=== PATIENT | male | born 1975 | race Hispanic/Latino ===

== ENCOUNTER → 2020-02-24 | Outpatient (CLI) | payer MEDICARE ==
[~2020-02-24] MED LIST: IOHEXOL 350 MG/ML 100ML INFUS..BTL IV ONE
== END | disposition home or self-care (01) ==
LOC: RAH 09:44
PROVIDERS: ATTEND Internal Medicine Gastroenterology
DX: C18.7 Malignant neoplasm of sigmoid colon (principal); N28.1 Cyst of kidney, acquired
CPT/HCPCS: 74178; Q9967

== ENCOUNTER 2020-07-17 05:50 | Inpatient (IN) | payer MEDICARE ==
[~2020-07-17] VITALS: Ht 180.3 cm; Wt 114.8 kg
[2020-07-17] MEDS ORDERED: FUROSEMIDE 10 MG/ML 4ML VIAL ONE (05:56)
[2020-07-17] MEDS ORDERED: NITROGLYCERIN 1GM/1 INCH PACKET TD ONE (05:56)
[2020-07-17] MEDS ORDERED: ONDANSETRON HCL 4 MG/2 ML VIAL ONE (06:05)
[2020-07-17] MEDS ORDERED: PROPOFOL 1000 MG/100 ML 100 ML IV ONE ×4 (06:15→18:58)
[2020-07-17 06:25] LABS: BASOPHILS % (AUTO) 0.2 % (0.0-5.0); EOSINOPHILS % (AUTO) 0.2 % (0.0-8.0); HEMATOCRIT 30.8 % (42-54); LYMPHOCYTES % (AUTO) 11.3 % (21.0-51.0); MEAN CORPUSCULAR HEMOGLOBIN 30.7 pg (27.0-33.0); MEAN CORPUSCULAR HGB CONC 32.8 g/dL (32.0-36.0); MEAN CORPUSCULAR VOLUME 93.6 fL (79-99); MONOCYTES % (AUTO) 4.9 % (3.0-13.0); NEUTROPHILS % (AUTO) 82.9 % (40.0-77.0); PLATELET COUNT (AUTO) 115 K/uL (130-400); RED BLOOD CELL COUNT(AUTO) 3.29 MIL/uL (4.50-6.20); RED CELL DISTRIBUTION WIDTH 16.6 % (11.0-15.5); WHITE BLOOD COUNT (AUTO) 5.5 K/uL (4.8-10.8)
[2020-07-17 06:31] LABS: ABG BASE EXCESS -8.5 mmol/L (-2.0-3.0); ABG HCO3 20.2 mmol/L (21.0-28.0); ABG OXYGEN SATURATION 90.7 % (95.0-99.0); ABG PCO2 58 mmHg (35-48)
[2020-07-17 06:39] LABS: INR 0.99 (0.85-1.15); PARTIAL THROMBOPLASTIN TIME 31.7 SEC (26.3-35.5); PROTHROMBIN TIME 10.7 SEC (9.6-11.6)
[2020-07-17 06:45] LABS: ALBUMIN 3.7 g/dL (3.5-5.0); BILIRUBIN,TOTAL 0.7 mg/dL (0.2-1.0); TOTAL PROTEIN, SERUM 8.2 g/dL (6.0-8.3)
[2020-07-17] MEDS ORDERED: SODIUM BICARB 50MEQ 50ML VIAL 50 ML ONE (06:46)
[2020-07-17] MEDS ORDERED: DEXTROSE 50%-WATER 50 ML DISP.SYRIN IV ONE (06:46)
[2020-07-17] MEDS ORDERED: INSULIN HUMULIN R 100 UNIT/ML 3ML ONE (06:47)
[2020-07-17 06:58] LABS: CREATININE 15.1 mg/dL (0.5-1.5)
[2020-07-17 06:59] LABS: POTASSIUM 7.1 mmol/L (3.5-5.1)
[2020-07-17 07:41] LABS: APPEARANCE,URINE Cloudy (CLEAR); BILIRUBIN,URINE Negative (NEGATIVE); COLOR,URINE Yellow (YELLOW); GLUCOSE, URINE (UA) 250 mg/dL (NEGATIVE); KETONES,URINE Negative (NEGATIVE); LEUKOCYTE ESTERASE ,URINE Negative (NEGATIVE); NITRATE,URINE Negative (NEGATIVE); OCCULT BLOOD,URINE Moderate (NEGATIVE); PH,URINE 7.5 (5.0-8.0); PROTEIN,URINE 300 mg/dL (NEGATIVE)
[2020-07-17] MEDS ORDERED: ALBUTEROL SULFATE 0.083% 2.5 MG/3 ML INH IH ONE (07:43)
[2020-07-17 07:55] LABS: RBC,URINE 26-50 /HPF (0-1); WBC,URINE None Seen /HPF (0-1); YEAST,URINE BUDDING Few /HPF (None Seen)
[2020-07-17 07:56] LABS: BACTERIA,URINE Rare /HPF (None Seen)
[2020-07-17] MEDS: CEFEPIME HCL 1 GM VIAL IVP SCH (08:30)
[2020-07-17] MEDS: ENOXAPARIN SODIUM 30 MG/0.3 ML SQ SCH ×2 (09:00→21:00)
[2020-07-17] MEDS: DOXYCYCLINE 100MG+NS 250ML 250 ML IV SCH ×2 (09:00→21:00)
[2020-07-17] MEDS ORDERED: FENTANYL 2500MCG+NS 250ML 250 ML IV ONE (10:50)
[2020-07-17] MEDS ORDERED: NIFEDIPINE ER 30 MG TAB PO ONE (11:28)
[2020-07-17] MEDS: INSULIN R PO SS1 SQ SCH ×3 (11:30→21:00)
[2020-07-17] MEDS ORDERED: CEFEPIME HCL 1 GM VIAL ONE (12:46)
[2020-07-17] MEDS ORDERED: DOXYCYCLINE 100MG+NS 250ML 250 ML IV ONE (12:46)
[2020-07-17] MEDS ORDERED: SODIUM CHLORIDE 0.9% 100 ML IV ONE (12:47)
[2020-07-17] MEDS ORDERED: NOREPINEPHRINE 4MG/NS 250ML 250 ML IV SCH (15:15)
[2020-07-17] MEDS ORDERED: ROCURONIUM BROMIDE 10MG/1ML 5ML VL IV SCH (16:00)
[2020-07-17] MEDS: ARTIFICAL TEARS SOL 15 ML OU SCH ×2 (16:00→22:00)
[2020-07-17] MEDS ORDERED: ROCURONIUM BROMIDE 100 MG in SODIUM CHLORIDE 0.9% 100 ML IV SCH (16:03)
[2020-07-17 16:52] LABS: ABG BASE EXCESS -1.2 mmol/L (-2.0-3.0); ABG HCO3 23.7 mmol/L (21.0-28.0); ABG PCO2 40 mmHg (35-48)
[2020-07-17] MEDS: CHLORHEXIDINE GLUCONATE 473 ML MOUTHWASH MM SCH (21:00)
[2020-07-18] VITALS (18 sets, daily range): BP systolic 97–166; BP diastolic 37–70
[2020-07-18 03:51] LABS: ABG BASE EXCESS -0.5 mmol/L (-2.0-3.0); ABG HCO3 24.7 mmol/L (21.0-28.0); ABG OXYGEN SATURATION 98.3 % (95.0-99.0); ABG PCO2 43 mmHg (35-48)
[2020-07-18] MEDS: ARTIFICAL TEARS SOL 15 ML OU SCH ×3 (04:00→16:00)
[2020-07-18 04:19] LABS: ALBUMIN 2.8 g/dL (3.5-5.0); BILIRUBIN,TOTAL 0.7 mg/dL (0.2-1.0); MAGNESIUM 1.7 mg/dL (1.80-2.40); POTASSIUM 5.1 mmol/L (3.5-5.1); TOTAL PROTEIN, SERUM 6.8 g/dL (6.0-8.3)
[2020-07-18 04:22] LABS: CREATININE 12.3 mg/dL (0.5-1.5)
[2020-07-18 04:28] LABS: BASOPHILS % (AUTO) 0.2 % (0.0-5.0); EOSINOPHILS % (AUTO) 0.2 % (0.0-8.0); HEMATOCRIT 22.9 % (42-54); LYMPHOCYTES % (AUTO) 6.3 % (21.0-51.0); MEAN CORPUSCULAR HEMOGLOBIN 30.6 pg (27.0-33.0); MEAN CORPUSCULAR HGB CONC 32.8 g/dL (32.0-36.0); MEAN CORPUSCULAR VOLUME 93.5 fL (79-99); MONOCYTES % (AUTO) 2.7 % (3.0-13.0); NEUTROPHILS % (AUTO) 90.1 % (40.0-77.0); PLATELET COUNT (AUTO) 77 K/uL (130-400); RED BLOOD CELL COUNT(AUTO) 2.45 MIL/uL (4.50-6.20); RED CELL DISTRIBUTION WIDTH 16.7 % (11.0-15.5); WHITE BLOOD COUNT (AUTO) 5.6 K/uL (4.8-10.8)
[2020-07-18] MEDS: INSULIN R PO SS1 SQ SCH ×4 (07:30→21:00)
[2020-07-18] MEDS ORDERED: DOXYCYCLINE 100MG+NS 250ML 250 ML IV ONE ×2 (08:13→08:39)
[2020-07-18] MEDS ORDERED: CEFEPIME HCL 1 GM VIAL ONE (08:13)
[2020-07-18] MEDS ORDERED: DEXAMETHASONE SOD PHOSPHATE 10MG/ML 1ML VIAL ONE (08:13)
[2020-07-18] MEDS ORDERED: SODIUM CHLORIDE 0.9% 50 ML IV ONE (08:14)
[2020-07-18] MEDS ORDERED: ENOXAPARIN SODIUM 30 MG/0.3 ML SQ ONE (08:20)
[2020-07-18] MEDS: CEFEPIME HCL 1 GM VIAL IVP SCH (08:30)
[2020-07-18] MEDS: DOXYCYCLINE 100MG+NS 250ML 250 ML IV SCH ×2 (09:00→20:59)
[2020-07-18] MEDS: ENOXAPARIN SODIUM 30 MG/0.3 ML SQ SCH ×2 (09:00→20:59)
[2020-07-18] MEDS: CHLORHEXIDINE GLUCONATE 473 ML MOUTHWASH MM SCH (09:00)
[2020-07-18] MEDS: DEXAMETHASONE SOD PHOSPHATE 4 MG/ML 1ML VIAL IVP SCH (09:00)
--- NOTE | 2020-07-18 10:30 | NUR ---
Pt to ICU room 206. Received report from ICU nurse, pt to rm 206 with RN and RT. Transferred without incident.
--- NOTE | 2020-07-18 11:23 | NUR ---
PERSONAL BELONGINGS NOTIFIED BY SECURITY, LUKASZ, PT'S BELONGINGS TURNED IN TO PT'S .
--- NOTE | 2020-07-18 14:11 | NUR ---
CM NOTE pt currently intubated, call made to spouse ashlyn timmons, states pt resides at home with her, pt independent with ambulation, has provider 20hrs /week for adl assist, no dme, no HH, pt [facility] MWF schedule, transports. states dc plan is back home at dc, but open to md recommendations as needed. Addendum: 07/18/20 at 1415 by FMEI PIERCE CM Amended: Links added.
[2020-07-18] MEDS ORDERED: FENTANYL 2500MCG+NS 250ML 250 ML IV ONE (20:28)
[2020-07-19] VITALS (41 sets, daily range): BP systolic 117–196; BP diastolic 41–93
[2020-07-19 04:03] LABS: ABG BASE EXCESS -3.9 mmol/L (-2.0-3.0); ABG HCO3 21.4 mmol/L (21.0-28.0); ABG OXYGEN SATURATION 97.6 % (95.0-99.0); ABG PCO2 40 mmHg (35-48)
[2020-07-19 04:40] LABS: BASOPHILS % (AUTO) 0.3 % (0.0-5.0); LYMPHOCYTES % (AUTO) 3.9 % (21.0-51.0); MEAN CORPUSCULAR HEMOGLOBIN 30.8 pg (27.0-33.0); MEAN CORPUSCULAR HGB CONC 32.5 g/dL (32.0-36.0); MEAN CORPUSCULAR VOLUME 94.6 fL (79-99); MONOCYTES % (AUTO) 3.4 % (3.0-13.0); NEUTROPHILS % (AUTO) 91.6 % (40.0-77.0); PLATELET COUNT (AUTO) 89 K/uL (130-400); RED BLOOD CELL COUNT(AUTO) 2.21 MIL/uL (4.50-6.20); RED CELL DISTRIBUTION WIDTH 16.7 % (11.0-15.5); WHITE BLOOD COUNT (AUTO) 3.9 K/uL (4.8-10.8)
[2020-07-19 05:05] LABS: HEMATOCRIT 20.9 % (42-54)
[2020-07-19 05:23] LABS: ALBUMIN 2.2 g/dL (3.5-5.0); BILIRUBIN,TOTAL 0.6 mg/dL (0.2-1.0); MAGNESIUM 2.1 mg/dL (1.80-2.40); PHOSPHORUS 8.8 mg/dL (2.5-4.9); POTASSIUM 5.1 mmol/L (3.5-5.1); TOTAL PROTEIN, SERUM 6.4 g/dL (6.0-8.3)
[2020-07-19 05:31] LABS: CREATININE 14.5 mg/dL (0.5-1.5)
[2020-07-19] MEDS: CHLORHEXIDINE GLUCONATE 473 ML MOUTHWASH MM SCH ×3 (07:00→21:12)
[2020-07-19] MEDS: ARTIFICAL TEARS SOL 15 ML OU SCH ×4 (07:00→21:12)
--- NOTE | 2020-07-19 07:25 | NUR ---
Pt. is intubated and sedated on Fentanyl and Versed follows simple commands when aroused. Lab called with critical value hg 6.9 reported to MD for Pulmonary Benchmark orders given. Pt. will have Dialysis today with 1 unit of blood, spouse Su consented.
[2020-07-19] MEDS: INSULIN R PO SS1 SQ SCH (07:30)
[2020-07-19] MEDS: CEFEPIME HCL 1 GM VIAL IVP SCH (09:07)
[2020-07-19] MEDS: FAMOTIDINE/PF 20 MG/2 ML VIAL IV SCH (09:07)
[2020-07-19] MEDS: DOXYCYCLINE 100MG+NS 250ML 250 ML IV SCH ×2 (09:07→21:09)
[2020-07-19] MEDS: ASPIRIN 81MG TAB.CHEW PO SCH (09:08)
[2020-07-19] MEDS: DEXAMETHASONE SOD PHOSPHATE 4 MG/ML 1ML VIAL IVP SCH (09:08)
[2020-07-19] MEDS: POLYETHYLENE GLYCOL 3350 17 GM POWD.PACK PO SCH (09:08)
[2020-07-19] MEDS: ENOXAPARIN SODIUM 30 MG/0.3 ML SQ SCH ×2 (09:10→21:09)
--- NOTE | 2020-07-19 11:18 | NUR ---
RD NOTIFICATION - TUBE FEEDING Pt admitted positive for COVID-19, Respiratory failure, Fluid overload. Pt intubated and sedated, OGT in place. Tube feedings of Nepro @30mls/hr initiated. Recommend advance as tolerated to goal rate of 45mls/hr. Rec flushes at 160mls Q4hrs. Recommendations faxed to Conrad, RN notified. RD NOTE: Pt tolerating current tube feeding rate with no report of GI distress. Pt with altered renal labs, hemodialysis initiated 07/18. Pt with Left foot ulcer; Recommend Will BID, 1000mg vitamin C QD, 220mg Zinc QD for wound healing support. Tube feeding initiated 07/18. Hypoactive bowel sounds per EMR; recommend consider GI stimulant as medically feasible. RD to continue to monitor. Please notify RD as additional nutrition concerns arise. Thank you. Addendum: 07/19/20 at [address] Amended: Links added.
[2020-07-19] MEDS: INSULIN HUMULIN R 100 UNIT/ML 3ML SQ SCH ×3 (11:39→23:54)
[2020-07-19 12:43] LABS: HEMATOCRIT 24.9 % (42-54)
[2020-07-19] MEDS ORDERED: FENTANYL 2500MCG+NS 250ML 250 ML IV ONE (22:06)
--- NOTE | 2020-07-19 23:45 | NUR ---
SPOKE WITH [employer] REGARDING PT BEING TACHYCARDIC AND HYPERTENSIVE ORDERS [facility]
[2020-07-19] MEDS ORDERED: METOPROLOL TARTRATE 25 MG TAB ONE (23:58)
[2020-07-20] VITALS (47 sets, daily range): BP systolic 114–225; BP diastolic 37–185
[2020-07-20] MEDS: ARTIFICAL TEARS SOL 15 ML OU SCH ×4 (04:00→20:24)
[2020-07-20 04:25] LABS: ABG BASE EXCESS -1.8 mmol/L (-2.0-3.0); ABG HCO3 22.8 mmol/L (21.0-28.0); ABG OXYGEN SATURATION 93.9 % (95.0-99.0); ABG PCO2 39 mmHg (35-48)
[2020-07-20 04:29] LABS: BASOPHILS % (AUTO) 0.2 % (0.0-5.0); HEMATOCRIT 24.8 % (42-54); LYMPHOCYTES % (AUTO) 5.4 % (21.0-51.0); MEAN CORPUSCULAR HEMOGLOBIN 30.7 pg (27.0-33.0); MEAN CORPUSCULAR HGB CONC 32.7 g/dL (32.0-36.0); MEAN CORPUSCULAR VOLUME 93.9 fL (79-99); MONOCYTES % (AUTO) 4.8 % (3.0-13.0); NEUTROPHILS % (AUTO) 88.6 % (40.0-77.0); PLATELET COUNT (AUTO) 111 K/uL (130-400); RED BLOOD CELL COUNT(AUTO) 2.64 MIL/uL (4.50-6.20); RED CELL DISTRIBUTION WIDTH 16.8 % (11.0-15.5); WHITE BLOOD COUNT (AUTO) 4.8 K/uL (4.8-10.8)
[2020-07-20 04:40] LABS: ALBUMIN 2.4 g/dL (3.5-5.0); BILIRUBIN,TOTAL 0.6 mg/dL (0.2-1.0); PHOSPHORUS 5.8 mg/dL (2.5-4.9); POTASSIUM 4.5 mmol/L (3.5-5.1); TOTAL PROTEIN, SERUM 7.6 g/dL (6.0-8.3)
[2020-07-20] MEDS: METOPROLOL TARTRATE 1 MG/ML 5ML VIAL IV PRN (05:25)
[2020-07-20] MEDS: INSULIN HUMULIN R 100 UNIT/ML 3ML SQ SCH ×3 (05:51→18:05)
[2020-07-20] MEDS: ENOXAPARIN SODIUM 30 MG/0.3 ML SQ SCH ×2 (09:03→20:22)
[2020-07-20] MEDS: POLYETHYLENE GLYCOL 3350 17 GM POWD.PACK PO SCH (09:04)
[2020-07-20] MEDS: DOXYCYCLINE 100MG+NS 250ML 250 ML IV SCH ×2 (09:04→20:22)
[2020-07-20] MEDS: CEFEPIME HCL 1 GM VIAL IVP SCH (09:04)
[2020-07-20] MEDS: ASPIRIN 81MG TAB.CHEW PO SCH (09:04)
[2020-07-20] MEDS: FAMOTIDINE/PF 20 MG/2 ML VIAL IV SCH (09:06)
[2020-07-20] MEDS: DEXAMETHASONE SOD PHOSPHATE 4 MG/ML 1ML VIAL IVP SCH (09:06)
[2020-07-20] MEDS: CHLORHEXIDINE GLUCONATE 473 ML MOUTHWASH MM SCH ×2 (09:06→20:24)
[2020-07-20] MEDS: METOPROLOL TARTRATE 25 MG TAB NG SCH ×2 (09:06→20:22)
[2020-07-20] MEDS ORDERED: COMPOUND IV REFRIGERATED 1 EACH IVSOLN MISC PRN (11:00)
[2020-07-20] MEDS ORDERED: VANCOMYCIN PROTOCOL PER PHARMACY IV SCH (11:00)
[2020-07-20] MEDS ORDERED: FENTANYL CITRATE PF 0.05 MG/ML 1,000 MCG in SODIUM CHLORIDE 0.9% 100 ML IVPB SCH (11:15)
[2020-07-20] MEDS: MIDAZOLAM 100MG-0.9% NS 100ML 100ML BAG IV SCH (11:49)
--- NOTE | 2020-07-20 15:00 | NUR ---
[facility] CONSULT Patient assessed by Wound HEALING Center team. callus to right foot; no open wound present. Addendum: 07/22/20 at 1654 by LUIS A VILLAREAL LVN Amended: Links added.
--- NOTE | 2020-07-20 17:04 | NUR ---
RD UPDATE Pt continues with Nepro at rate of 30mls/hr. Tube feeding recommendations for advancement faxed 07/19/20 however possibly not received as per RN. Tube feeding recommendations re-faxed 07/20/20 17:05. Recommend advance tube feeding rate as tolerated, as medically feasible. RD to continue to monitor.
[2020-07-20] MEDS ORDERED: FENTANYL 2500MCG+NS 250ML 250 ML IV ONE (19:40)
[2020-07-20 23:03] LABS: ABG BASE EXCESS -1.4 mmol/L (-2.0-3.0); ABG OXYGEN SATURATION 94.3 % (95.0-99.0); ABG PCO2 38 mmHg (35-48)
[2020-07-21] VITALS (58 sets, daily range): BP systolic 73–182; BP diastolic 18–113
[2020-07-21] MEDS: INSULIN HUMULIN R 100 UNIT/ML 3ML SQ SCH ×4 (00:05→17:00)
[2020-07-21 04:15] LABS: HEMATOCRIT 21.6 % (42-54); MEAN CORPUSCULAR HGB CONC 32.9 g/dL (32.0-36.0); MEAN CORPUSCULAR VOLUME 94.3 fL (79-99); RED BLOOD CELL COUNT(AUTO) 2.29 MIL/uL (4.50-6.20); RED CELL DISTRIBUTION WIDTH 16.5 % (11.0-15.5); WHITE BLOOD COUNT (AUTO) 3.2 K/uL (4.8-10.8)
[2020-07-21 04:30] LABS: POTASSIUM 5.3 mmol/L (3.5-5.1)
[2020-07-21 04:32] LABS: CREATININE 13.5 mg/dL (0.5-1.5)
[2020-07-21] MEDS: ARTIFICAL TEARS SOL 15 ML OU SCH ×4 (06:19→22:37)
[2020-07-21] MEDS: MIDAZOLAM 100MG-0.9% NS 100ML 100ML BAG IV SCH ×2 (06:24→20:03)
[2020-07-21] MEDS: POLYETHYLENE GLYCOL 3350 17 GM POWD.PACK PO SCH (10:34)
[2020-07-21] MEDS: ENOXAPARIN SODIUM 30 MG/0.3 ML SQ SCH ×2 (10:36→20:04)
[2020-07-21] MEDS: METOPROLOL TARTRATE 25 MG TAB NG SCH ×2 (10:36→20:04)
[2020-07-21] MEDS: ASPIRIN 81MG TAB.CHEW PO SCH (10:37)
[2020-07-21] MEDS: DEXAMETHASONE SOD PHOSPHATE 4 MG/ML 1ML VIAL IVP SCH (10:37)
[2020-07-21] MEDS: FAMOTIDINE/PF 20 MG/2 ML VIAL IV SCH (10:37)
[2020-07-21] MEDS: CHLORHEXIDINE GLUCONATE 473 ML MOUTHWASH MM SCH ×2 (10:38→22:38)
[2020-07-21] MEDS: DOXYCYCLINE 100MG+NS 250ML 250 ML IV SCH ×2 (10:42→22:36)
[2020-07-21] MEDS: CEFEPIME HCL 1 GM VIAL IVP SCH (10:42)
--- NOTE | 2020-07-21 16:05 | NUR ---
RD UPDATE Tube Feeding advanced to goal rate (Nepro 45mls/hr). Pt continues to be hemodynamically stable, per MD note. S/p hemodialysis this AM. Monitored labs: K 5.3, BUN 101, Cr 13.5, GFR 4, BG 223. Doxy, Miralax, Lopressor in place medications in place. Dialysis schedule continues . RD to continue to monitor. Please notify as additional nutrition concerns arise. Thank you.
[2020-07-21] MEDS ORDERED: FENTANYL 2500MCG+NS 250ML 250 ML IV ONE (16:58)
[2020-07-21] MEDS: EPOETIN ALFA 10,000 UNIT/ML VIAL SQ SCH (21:00)
[2020-07-22] VITALS (25 sets, daily range): BP systolic 150–212; BP diastolic 54–98
[2020-07-22] MEDS: ARTIFICAL TEARS SOL 15 ML OU SCH ×4 (04:00→21:23)
[2020-07-22] MEDS: INSULIN HUMULIN R 100 UNIT/ML 3ML SQ SCH ×4 (06:00→18:08)
[2020-07-22 06:10] LABS: HEMATOCRIT 23.3 % (42-54); LYMPHOCYTES % (AUTO) 4.9 % (21.0-51.0); MEAN CORPUSCULAR HEMOGLOBIN 30.4 pg (27.0-33.0); MEAN CORPUSCULAR HGB CONC 32.6 g/dL (32.0-36.0); MEAN CORPUSCULAR VOLUME 93.2 fL (79-99); MONOCYTES % (AUTO) 4.9 % (3.0-13.0); NEUTROPHILS % (AUTO) 87.5 % (40.0-77.0); PLATELET COUNT (AUTO) 143 K/uL (130-400); RED CELL DISTRIBUTION WIDTH 16.1 % (11.0-15.5); WHITE BLOOD COUNT (AUTO) 4.5 K/uL (4.8-10.8)
[2020-07-22 06:20] LABS: POTASSIUM 5.1 mmol/L (3.5-5.1)
[2020-07-22 06:25] LABS: CREATININE 10.2 mg/dL (0.5-1.5)
--- NOTE | 2020-07-22 07:36 | NUR ---
Pt. is intubated and sedated on Fent and Versed tolerating well overnight. Will attempt to wean off Vent and sedation this am.
[2020-07-22] MEDS: POLYETHYLENE GLYCOL 3350 17 GM POWD.PACK PO SCH (09:00)
[2020-07-22] MEDS: CEFEPIME HCL 1 GM VIAL IVP SCH (09:49)
[2020-07-22] MEDS: FAMOTIDINE/PF 20 MG/2 ML VIAL IV SCH (09:49)
[2020-07-22] MEDS: METOPROLOL TARTRATE 25 MG TAB NG SCH ×2 (09:49→21:16)
[2020-07-22] MEDS: DOXYCYCLINE 100MG+NS 250ML 250 ML IV SCH ×2 (09:49→21:16)
[2020-07-22] MEDS: DEXAMETHASONE SOD PHOSPHATE 4 MG/ML 1ML VIAL IVP SCH (09:49)
[2020-07-22] MEDS: ASPIRIN 81MG TAB.CHEW PO SCH (09:49)
[2020-07-22] MEDS: ENOXAPARIN SODIUM 30 MG/0.3 ML SQ SCH ×2 (09:50→21:16)
[2020-07-22 10:17] LABS: ABG BASE EXCESS 0.4 mmol/L (-2.0-3.0); ABG HCO3 26.9 mmol/L (21.0-28.0); ABG OXYGEN SATURATION 95.8 % (95.0-99.0); ABG PCO2 50 mmHg (35-48)
[2020-07-22] MEDS: CALCIUM ACETATE 667 MG CAPSULE PO SCH ×3 (10:28→17:36)
[2020-07-22] MEDS: CHLORHEXIDINE GLUCONATE 473 ML MOUTHWASH MM SCH ×2 (10:28→21:24)
[2020-07-22 12:11] LABS: HEPATITIS A ANTIBODY IGM Negative (Negative); HEPATITIS B CORE IGM Negative (Negative); HEPATITIS Bs ANTIGEN SCREEN P Negative (Negative)
--- NOTE | 2020-07-22 14:52 | NUR ---
RD FOLLOW UP Pt continues to tolerate Suplena Tube feeding at 45mls/hr. Pt continues with Dialysis and K Bath Monitored labs: BUN 86, Cr 10.2, GFR 6, BG 153, P 7.5, H/H 7.6/22.3, RBC 2.50, WBC 4.5, Cl 98. BLE/BUE 1+/2+ edema. Pt unable to lay flat as per EMR. RD to continue to monitor.
[2020-07-22] MEDS: MIDAZOLAM 100MG-0.9% NS 100ML 100ML BAG IV SCH (16:08)
[2020-07-22] MEDS ORDERED: FENTANYL 2500MCG+NS 250ML 250 ML IV SCH (21:45)
[2020-07-23] VITALS (23 sets, daily range): BP systolic 126–232; BP diastolic 59–99
[2020-07-23] MEDS: ARTIFICAL TEARS SOL 15 ML OU SCH ×4 (04:00→23:13)
[2020-07-23 04:41] LABS: ABG BASE EXCESS 1.1 mmol/L (-2.0-3.0); ABG OXYGEN SATURATION 98.1 % (95.0-99.0); ABG PCO2 38 mmHg (35-48)
[2020-07-23] MEDS: INSULIN HUMULIN R 100 UNIT/ML 3ML SQ SCH ×4 (06:00→18:00)
--- NOTE | 2020-07-23 06:49 | NUR ---
Pt. is intubated and sedated slept well all night. Preparing for weaning trial this am with sedation holiday. Spoke with spouse last night and is aware of plans today.
[2020-07-23 07:44] LABS: BASOPHILS % (AUTO) 0.2 % (0.0-5.0); HEMATOCRIT 22.6 % (42-54); MEAN CORPUSCULAR HEMOGLOBIN 30.3 pg (27.0-33.0); MEAN CORPUSCULAR HGB CONC 32.3 g/dL (32.0-36.0); MEAN CORPUSCULAR VOLUME 93.8 fL (79-99); MONOCYTES % (AUTO) 6.8 % (3.0-13.0); NEUTROPHILS % (AUTO) 83.6 % (40.0-77.0); PLATELET COUNT (AUTO) 160 K/uL (130-400); RED BLOOD CELL COUNT(AUTO) 2.41 MIL/uL (4.50-6.20); RED CELL DISTRIBUTION WIDTH 15.7 % (11.0-15.5); WHITE BLOOD COUNT (AUTO) 6.2 K/uL (4.8-10.8)
[2020-07-23 07:54] LABS: ALBUMIN 2.4 g/dL (3.5-5.0); BILIRUBIN,TOTAL 0.5 mg/dL (0.2-1.0); TOTAL PROTEIN, SERUM 6.2 g/dL (6.0-8.3)
[2020-07-23 07:59] LABS: CREATININE 11.8 mg/dL (0.5-1.5)
[2020-07-23] MEDS: CEFEPIME HCL 1 GM VIAL IVP SCH (08:52)
[2020-07-23] MEDS: CALCIUM ACETATE 667 MG CAPSULE PO SCH ×3 (08:54→16:06)
[2020-07-23] MEDS: FAMOTIDINE/PF 20 MG/2 ML VIAL IV SCH (08:54)
[2020-07-23] MEDS: DEXAMETHASONE SOD PHOSPHATE 4 MG/ML 1ML VIAL IVP SCH (08:54)
[2020-07-23] MEDS: DOXYCYCLINE 100MG+NS 250ML 250 ML IV SCH ×2 (08:54→19:54)
[2020-07-23] MEDS: CHLORHEXIDINE GLUCONATE 473 ML MOUTHWASH MM SCH ×2 (08:55→19:57)
[2020-07-23] MEDS: METOPROLOL TARTRATE 25 MG TAB NG SCH ×2 (08:55→19:55)
[2020-07-23] MEDS: ASPIRIN 81MG TAB.CHEW PO SCH (08:55)
[2020-07-23] MEDS: ENOXAPARIN SODIUM 30 MG/0.3 ML SQ SCH ×2 (08:55→19:55)
[2020-07-23] MEDS: POLYETHYLENE GLYCOL 3350 17 GM POWD.PACK PO SCH (09:00)
--- NOTE | 2020-07-23 09:24 | NUR ---
Receiving Note: Neuro: Received pt in bed alert and lethargic. Pt is able able to move all extremities to painful stimuli. Pt unable to express needs nor follow commands. Pupils 3 mm and moderate. Rep: Pt is intubated ETT to vent. Moderate secretions inline and blood tinge secretions orally. Oral care done. Bilateral lung gallegos clear bilaterally. Cardio: NSR noted on dredge pumper. Pt is hypertensive. All pulses palpable. GI: Pt is NPO (planned for possible extubation). NGT in place and clamped. : Pt is auric. Pt on hemodialysis. Skin: Skin kept dry and clean. Skin care rendered. Turning and repositioning done as protocol.
[2020-07-23] MEDS: METOPROLOL TARTRATE 1 MG/ML 5ML VIAL IV PRN (10:33)
--- NOTE | 2020-07-23 10:42 | NUR ---
Restlessness Pt is restless and agitated, banging on bed. VS: BP 121/105 HR 105, 02 100 RR 38. CLIENT ACCOUNT REPRESENTATIVE Yolanda called and notified. As ordered PRN lopressor 25 mg administered and sedated resumed.
--- NOTE | 2020-07-23 11:51 | NUR ---
[facility] CONSULT Patient assessed by wound healing center team. Assessment and recommendations discussed with primary nurse. Orders entered. Education provided. Addendum: 07/23/20 at 1151 by LINDA PEREZ RN RN/ Amended: Links added.
[2020-07-23] MEDS: BALSAM PERU/CASTOR OIL 60 GM TUBE TP SCH ×2 (15:15→21:00)
[2020-07-24] VITALS (31 sets, daily range): BP systolic 133–228; BP diastolic 55–120
[2020-07-24] MEDS: MIDAZOLAM 100MG-0.9% NS 100ML 100ML BAG IV SCH (01:42)
[2020-07-24] MEDS: ARTIFICAL TEARS SOL 15 ML OU SCH ×4 (04:30→21:27)
[2020-07-24 04:39] LABS: HEMATOCRIT 24.2 % (42-54); MEAN CORPUSCULAR HGB CONC 32.2 g/dL (32.0-36.0); MEAN CORPUSCULAR VOLUME 93.1 fL (79-99); RED BLOOD CELL COUNT(AUTO) 2.6 MIL/uL (4.50-6.20); RED CELL DISTRIBUTION WIDTH 15.5 % (11.0-15.5); WHITE BLOOD COUNT (AUTO) 9.6 K/uL (4.8-10.8)
[2020-07-24 04:55] LABS: POTASSIUM 4.8 mmol/L (3.5-5.1)
[2020-07-24] MEDS: INSULIN HUMULIN R 100 UNIT/ML 3ML SQ SCH ×4 (04:56→18:28)
[2020-07-24 05:11] LABS: CREATININE 9.6 mg/dL (0.5-1.5)
[2020-07-24 07:08] LABS: ABG BASE EXCESS -0.8 mmol/L (-2.0-3.0); ABG HCO3 23.6 mmol/L (21.0-28.0); ABG OXYGEN SATURATION 92.6 % (95.0-99.0); ABG PCO2 38 mmHg (35-48)
[2020-07-24] MEDS: EPOETIN ALFA 10,000 UNIT/ML VIAL SQ SCH (07:25)
[2020-07-24] MEDS: CALCIUM ACETATE 667 MG CAPSULE PO SCH ×3 (08:00→18:29)
[2020-07-24] MEDS: FAMOTIDINE/PF 20 MG/2 ML VIAL IV SCH (09:00)
[2020-07-24] MEDS: METOPROLOL TARTRATE 1 MG/ML 5ML VIAL IV PRN ×2 (09:24→12:22)
[2020-07-24] MEDS: CEFEPIME HCL 1 GM VIAL IVP SCH (09:24)
[2020-07-24] MEDS: DEXAMETHASONE SOD PHOSPHATE 4 MG/ML 1ML VIAL IVP SCH (09:24)
[2020-07-24] MEDS: DOXYCYCLINE 100MG+NS 250ML 250 ML IV SCH ×2 (09:24→21:23)
[2020-07-24] MEDS: BALSAM PERU/CASTOR OIL 60 GM TUBE TP SCH ×3 (09:25→21:00)
[2020-07-24] MEDS: ASPIRIN 81MG TAB.CHEW PO SCH (09:25)
[2020-07-24] MEDS: POLYETHYLENE GLYCOL 3350 17 GM POWD.PACK PO SCH (09:25)
[2020-07-24] MEDS: ENOXAPARIN SODIUM 30 MG/0.3 ML SQ SCH ×2 (09:25→21:20)
[2020-07-24] MEDS: CHLORHEXIDINE GLUCONATE 473 ML MOUTHWASH MM SCH ×2 (10:04→21:00)
[2020-07-24] MEDS: METOPROLOL TARTRATE 25 MG TAB NG SCH ×2 (10:04→22:09)
[2020-07-24 10:24] LABS: ABG BASE EXCESS 2.1 mmol/L (-2.0-3.0); ABG HCO3 25.3 mmol/L (21.0-28.0); ABG PCO2 35 mmHg (35-48)
[2020-07-24] MEDS ORDERED: NICARDIPINE IN NACL, ISO-OSM 200 ML IV SCH (12:30)
[2020-07-24] MEDS ORDERED: HYDRALAZINE HCL 25 MG TABLET PO PRN (12:30)
[2020-07-24] MEDS: DEXMEDETOMIDINE HCL 400 MCG in SODIUM CHLORIDE 0.9% 100 ML IV SCH ×2 (16:18→21:19)
--- NOTE | 2020-07-24 18:46 | NUR ---
Vent weaning: Pt placed on CPAP: 05/24, 40%, rate 20, from 0830 to 1215, Pt was able to follow command, but appeared lethargic, at 1215 Pt become tachypneic rate of 40's to 50's, placed back to AC mode by Jackson AMATO, restarted sedation, stopped versed, started Precedex, and restarted Fentanyl. Throughout the day, Pt is hypertensive, 2 dose of metoprolol 5mg IVP given plus 25mg PO metoprolol and 25mg Hydralazine, Pt still hypertensive, started Cardene drip. Currently Pt on 5mg/hr, maintaining SBP of 150-16's, Yolanda GARCIA aware and Dr. Harris.
[2020-07-24] MEDS ORDERED: NICARDIPINE HCL 25 MG in SODIUM CHLORIDE 0.9% 240 ML IV SCH (19:00)
[2020-07-24] MEDS ORDERED: DEXMEDETOMIDINE HCL 200 MCG/2 ML VIAL IV ONE (23:15)
[2020-07-24] MEDS ORDERED: SODIUM CHLORIDE 0.9% 100 ML IV ONE (23:15)
[2020-07-25] VITALS (36 sets, daily range): BP systolic 127–185; BP diastolic 40–134
[2020-07-25] MEDS: HYDRALAZINE HCL 25 MG TABLET PO SCH ×4 (00:58→17:01)
[2020-07-25] MEDS ORDERED: SODIUM CHLORIDE 0.9% 250 ML IV ONE (01:58)
[2020-07-25 04:05] LABS: HEMATOCRIT 21.6 % (42-54); MEAN CORPUSCULAR HEMOGLOBIN 31.1 pg (27.0-33.0); MEAN CORPUSCULAR HGB CONC 34.3 g/dL (32.0-36.0); MEAN CORPUSCULAR VOLUME 90.8 fL (79-99); RED BLOOD CELL COUNT(AUTO) 2.38 MIL/uL (4.50-6.20); RED CELL DISTRIBUTION WIDTH 15.1 % (11.0-15.5); WHITE BLOOD COUNT (AUTO) 8.6 K/uL (4.8-10.8)
[2020-07-25 04:22] LABS: POTASSIUM 4.8 mmol/L (3.5-5.1)
[2020-07-25 04:29] LABS: CREATININE 11.7 mg/dL (0.5-1.5)
[2020-07-25] MEDS: ARTIFICAL TEARS SOL 15 ML OU SCH ×4 (05:18→21:07)
[2020-07-25] MEDS ORDERED: SODIUM CHLORIDE 0.9% 100 ML IV ONE (05:22)
[2020-07-25] MEDS: INSULIN HUMULIN R 100 UNIT/ML 3ML SQ SCH ×4 (05:25→18:52)
[2020-07-25] MEDS: DEXMEDETOMIDINE HCL 400 MCG in SODIUM CHLORIDE 0.9% 100 ML IV SCH (05:38)
[2020-07-25] MEDS: METOPROLOL TARTRATE 25 MG TAB NG SCH ×2 (09:11→20:30)
[2020-07-25] MEDS: DEXAMETHASONE SOD PHOSPHATE 4 MG/ML 1ML VIAL IVP SCH (09:11)
[2020-07-25] MEDS: DOXYCYCLINE 100MG+NS 250ML 250 ML IV SCH ×2 (09:12→20:30)
[2020-07-25] MEDS: CEFEPIME HCL 1 GM VIAL IVP SCH (09:12)
[2020-07-25] MEDS: ASPIRIN 81MG TAB.CHEW PO SCH (09:12)
[2020-07-25] MEDS: FAMOTIDINE/PF 20 MG/2 ML VIAL IV SCH (09:12)
[2020-07-25] MEDS: ENOXAPARIN SODIUM 30 MG/0.3 ML SQ SCH ×2 (09:13→20:30)
[2020-07-25] MEDS: BALSAM PERU/CASTOR OIL 60 GM TUBE TP SCH ×3 (09:13→21:07)
[2020-07-25] MEDS: CHLORHEXIDINE GLUCONATE 473 ML MOUTHWASH MM SCH ×2 (09:13→21:06)
[2020-07-25] MEDS: POLYETHYLENE GLYCOL 3350 17 GM POWD.PACK PO SCH (09:15)
[2020-07-25] MEDS: CALCIUM ACETATE 667 MG CAPSULE PO SCH ×3 (09:16→17:00)
[2020-07-25] MEDS: CLONIDINE 0.1 MG/ 24 HR PATCH TD SCH ×2 (09:47→22:15)
[2020-07-25 10:18] LABS: ABG BASE EXCESS -1.6 mmol/L (-2.0-3.0); ABG HCO3 22.5 mmol/L (21.0-28.0); ABG PCO2 37 mmHg (35-48)
--- NOTE | 2020-07-25 11:23 | NUR ---
Extubation: Successfully extubated Pt at 1110 with assistance of Steve AMATO, Pt tolerating well, currently on 5L O2 via NC maintaining SpO2 of 94-96%, will continue close monitoring.
[2020-07-25] MEDS ORDERED: SODIUM CHLORIDE 0.9% IV SCH (18:45)
[2020-07-25] MEDS ORDERED: NICARDIPINE HCL IV SCH (18:45)
[2020-07-26] VITALS (44 sets, daily range): BP systolic 121–199; BP diastolic 44–117
[2020-07-26] MEDS: INSULIN HUMULIN R 100 UNIT/ML 3ML SQ SCH ×5 (00:03→23:22)
[2020-07-26 04:04] LABS: HEMATOCRIT 24.5 % (42-54); MEAN CORPUSCULAR HEMOGLOBIN 30.3 pg (27.0-33.0); MEAN CORPUSCULAR HGB CONC 33.5 g/dL (32.0-36.0); MEAN CORPUSCULAR VOLUME 90.4 fL (79-99); NUCLEATED RED BLOOD CELLS 0.1 % (0.0-0.19); RED BLOOD CELL COUNT(AUTO) 2.71 MIL/uL (4.50-6.20); RED CELL DISTRIBUTION WIDTH 15.4 % (11.0-15.5); WHITE BLOOD COUNT (AUTO) 14.6 K/uL (4.8-10.8)
[2020-07-26 04:19] LABS: POTASSIUM 4.8 mmol/L (3.5-5.1)
[2020-07-26 04:29] LABS: CREATININE 13.4 mg/dL (0.5-1.5)
[2020-07-26] MEDS: ARTIFICAL TEARS SOL 15 ML OU SCH ×4 (05:39→21:51)
[2020-07-26] MEDS: HYDRALAZINE HCL 25 MG TABLET PO SCH ×5 (05:41→23:23)
[2020-07-26] MEDS: DOXYCYCLINE 100MG+NS 250ML 250 ML IV SCH ×2 (10:21→20:49)
[2020-07-26] MEDS: POLYETHYLENE GLYCOL 3350 17 GM POWD.PACK PO SCH (10:21)
[2020-07-26] MEDS: ASPIRIN 81MG TAB.CHEW PO SCH (10:22)
[2020-07-26] MEDS: DEXAMETHASONE SOD PHOSPHATE 4 MG/ML 1ML VIAL IVP SCH (10:22)
[2020-07-26] MEDS: CALCIUM ACETATE 667 MG CAPSULE PO SCH ×3 (10:23→17:41)
[2020-07-26] MEDS: FAMOTIDINE/PF 20 MG/2 ML VIAL IV SCH (10:23)
[2020-07-26] MEDS: CEFEPIME HCL 1 GM VIAL IVP SCH (10:23)
[2020-07-26] MEDS: ENOXAPARIN SODIUM 30 MG/0.3 ML SQ SCH ×2 (10:23→20:49)
[2020-07-26] MEDS: METOPROLOL TARTRATE 25 MG TAB NG SCH ×2 (10:23→20:50)
[2020-07-26] MEDS: CHLORHEXIDINE GLUCONATE 473 ML MOUTHWASH MM SCH ×2 (10:24→20:50)
[2020-07-26] MEDS: BALSAM PERU/CASTOR OIL 60 GM TUBE TP SCH ×3 (10:24→20:51)
--- NOTE | 2020-07-26 13:00 | NUR ---
DYSPHAGIA EVAL COMPLETED. -S/S OF ASPIRATION. RECOMMEND FULL LIQUID DIET; PILLS WHOLE WITH LIQUIDS. RECOMMENDATIONS: 1. ADVANCED TO REACH MECHANICAL SOFT/CHOPPED, THIN LIQUIDS TOLERATED. Addendum: 07/27/20 at 0821 by SEBASTIÁN OROZCO, [facility] Amended: Links added.
[2020-07-26] MEDS: EPOETIN ALFA 10,000 UNIT/ML VIAL SQ SCH (20:48)
[2020-07-26] MEDS ORDERED: SODIUM CHLORIDE 0.9% 250 ML IV ONE (21:08)
[2020-07-26] MEDS: CLONIDINE 0.1 MG/ 24 HR PATCH TD SCH (21:48)
[2020-07-26] MEDS ORDERED: DEXMEDETOMIDINE HCL 200 MCG/2 ML VIAL IV ONE (22:46)
[2020-07-26] MEDS ORDERED: SODIUM CHLORIDE 0.9% 100 ML IV ONE (22:46)
[2020-07-27] VITALS (51 sets, daily range): BP systolic 105–198; BP diastolic 44–111
[2020-07-27] MEDS ORDERED: ALBUTEROL INHALER 90MCG/INH IH ONE (01:46)
[2020-07-27] MEDS: ALBUTEROL INHALER 90MCG/INH IH PRN (01:59)
--- NOTE | 2020-07-27 03:23 | NUR ---
On 07/26 at 2040 patient refused to use BIPAP I tried placing on patient kept refusing and he is very alert the nurse tried and patient continued refusing took mask off nursing and family and doctor are aware of patient refusing will continue to monitor on NC sats maintaining . Addendum: 07/27/20 at 0327 by DAVID ALCAZAR RT Amended: Links added.
[2020-07-27 03:44] LABS: ABG BASE EXCESS -1.9 mmol/L (-2.0-3.0); ABG HCO3 23.6 mmol/L (21.0-28.0); ABG OXYGEN SATURATION 94.8 % (95.0-99.0); ABG PCO2 43 mmHg (35-48)
[2020-07-27] MEDS ORDERED: NICARDIPINE HCL IV SCH (04:00)
[2020-07-27] MEDS ORDERED: SODIUM CHLORIDE 0.9% IV SCH (04:00)
[2020-07-27] MEDS ORDERED: SODIUM CHLORIDE 0.9% 100 ML IV ONE (04:15)
[2020-07-27] MEDS ORDERED: DEXMEDETOMIDINE HCL 200 MCG/2 ML VIAL IV ONE (04:15)
[2020-07-27 05:03] LABS: HEMATOCRIT 23.6 % (42-54); MEAN CORPUSCULAR HEMOGLOBIN 30.5 pg (27.0-33.0); MEAN CORPUSCULAR HGB CONC 33.1 g/dL (32.0-36.0); MEAN CORPUSCULAR VOLUME 92.2 fL (79-99); NUCLEATED RED BLOOD CELLS 0.2 % (0.0-0.19); RED BLOOD CELL COUNT(AUTO) 2.56 MIL/uL (4.50-6.20); RED CELL DISTRIBUTION WIDTH 15.4 % (11.0-15.5); WHITE BLOOD COUNT (AUTO) 11.5 K/uL (4.8-10.8)
[2020-07-27 05:18] LABS: POTASSIUM 5.2 mmol/L (3.5-5.1)
[2020-07-27] MEDS: ARTIFICAL TEARS SOL 15 ML OU SCH ×4 (05:55→22:00)
[2020-07-27] MEDS: INSULIN HUMULIN R 100 UNIT/ML 3ML SQ SCH ×3 (05:58→17:41)
[2020-07-27] MEDS: HYDRALAZINE HCL 25 MG TABLET PO SCH ×3 (06:00→17:41)
--- NOTE | 2020-07-27 07:04 | NUR ---
Mild distress Patient appeared to be in mild distress, although O2 sat was 93% on 5 L, respiratory rate was 32. Patient appeared tired and had audible wheezing. Attempted to put patient on bipap but patient refused. FOUNDATION ENGINEER Anurag was notified and ordered for cxray, ABG in the am and albuterol inhaler and to place patient on a 15L non rebreather. Patient became very restless and agitated attempting to get out of bed so precedex was resumed in an attempt to calm patient and control respiratory rate and bp. At 0200 patient had not improved so FOUNDATION ENGINEER was notified again and this time gave orders to complete ABG now. ABG results were reported to FOUNDATION ENGINEER and FOUNDATION ENGINEER was notified of patients steadily increasing bp and gave orders to restart nicardipine drip. Patient currently on non rebreather and nicardipine drip.
[2020-07-27] MEDS ORDERED: NICARDIPINE HCL 100 MG in SODIUM CHLORIDE 0.9% 60 ML IV SCH (07:30)
[2020-07-27] MEDS: CALCIUM ACETATE 667 MG CAPSULE PO SCH ×3 (08:00→17:00)
[2020-07-27 08:35] LABS: ABG HCO3 22.8 mmol/L (21.0-28.0); ABG PCO2 39 mmHg (35-48)
[2020-07-27] MEDS: ASPIRIN 81MG TAB.CHEW PO SCH (09:00)
[2020-07-27] MEDS ORDERED: VANCOMYCIN 1.5 GM in SODIUM CHLORIDE 0.9% 250 ML IV SCH ×2 (09:00→11:15)
[2020-07-27] MEDS: METOPROLOL TARTRATE 25 MG TAB NG SCH ×2 (09:00→19:44)
[2020-07-27] MEDS: CHLORHEXIDINE GLUCONATE 473 ML MOUTHWASH MM SCH ×2 (09:00→19:44)
[2020-07-27] MEDS: POLYETHYLENE GLYCOL 3350 17 GM POWD.PACK PO SCH (09:00)
[2020-07-27] MEDS: BALSAM PERU/CASTOR OIL 60 GM TUBE TP SCH ×3 (09:00→19:44)
[2020-07-27 09:05] LABS: ABG BASE EXCESS -1.6 mmol/L (-2.0-3.0); ABG HCO3 22.2 mmol/L (21.0-28.0); ABG OXYGEN SATURATION 94.6 % (95.0-99.0); ABG PCO2 35 mmHg (35-48)
[2020-07-27] MEDS ORDERED: DEXMEDETOMIDINE HCL 1,000 MCG in SODIUM CHLORIDE 0.9% 250 ML IV SCH (11:15)
--- NOTE | 2020-07-27 13:24 | NUR ---
RECOMMEND NPO Pt CURRENTLY ON CPAP. RECOMMEND HOLD P.O. UNTIL CURRENT STATUS IMPROVES. Addendum: 07/27/20 at 1325 by SEBASTIÁN OROZCO [facility] Amended: Links added.
--- NOTE | 2020-07-27 14:18 | NUR ---
Pt had 3 hrs dialysis, removed 2L, Pt now breath better, less retraction, rate wnl, seems comfortable, BP wnl, decreased Precedex to 0.6mcg/kg/min, Cardene still on hold, decreased FiO2 to 40%, Pt tolerating well so far, maintaining SpO2 of 95%, will continue to monitor.
[2020-07-27] MEDS: DEXAMETHASONE SOD PHOSPHATE 4 MG/ML 1ML VIAL IVP SCH (14:54)
[2020-07-27] MEDS: FAMOTIDINE/PF 20 MG/2 ML VIAL IV SCH (14:54)
[2020-07-27] MEDS: ENOXAPARIN SODIUM 30 MG/0.3 ML SQ SCH ×2 (14:55→19:52)
--- NOTE | 2020-07-27 15:56 | NUR ---
RD FOLLOW UP Tube feeding discontinued x 1 day ago. Full Liquid diet order in place. Poor PO intake. Pt weaning from Precedex as per RN. Monitored labs: WBC 11.5, H/H 7.8/23.6, K 5.2, Cl 96, BYN 112, Cr 11.0, GFR 5, BG 140. Albuterol, Dexa, Pepcid, Lovenox medications in place. LBM 07/26/20. ST recommend hold diet order at this time. Pending swallow evaluation. RD to continue to monitor. Addendum: 07/27/20 at [address] Amended: Links added.
[2020-07-27] MEDS ORDERED: DEXMEDETOMIDINE HCL 400 MCG in SODIUM CHLORIDE 0.9% 100 ML IV SCH (20:00)
[2020-07-27] MEDS: CLONIDINE 0.1 MG/ 24 HR PATCH TD SCH (22:15)
[2020-07-28] VITALS (29 sets, daily range): BP systolic 115–185; BP diastolic 37–86
[2020-07-28] MEDS: ARTIFICAL TEARS SOL 15 ML OU SCH ×2 (03:30→10:00)
[2020-07-28 04:02] LABS: ABG HCO3 23.9 mmol/L (21.0-28.0); ABG OXYGEN SATURATION 98.1 % (95.0-99.0); ABG PCO2 37 mmHg (35-48)
[2020-07-28 05:14] LABS: BASOPHILS % (AUTO) 0.1 % (0.0-5.0); HEMATOCRIT 21.9 % (42-54); LYMPHOCYTES % (AUTO) 4.5 % (21.0-51.0); MEAN CORPUSCULAR HGB CONC 32.9 g/dL (32.0-36.0); MEAN CORPUSCULAR VOLUME 91.3 fL (79-99); MONOCYTES % (AUTO) 5.2 % (3.0-13.0); NEUTROPHILS % (AUTO) 84.1 % (40.0-77.0); NUCLEATED RED BLOOD CELLS 0.2 % (0.0-0.19); PLATELET COUNT (AUTO) 214 K/uL (130-400); RED CELL DISTRIBUTION WIDTH 15.1 % (11.0-15.5); WHITE BLOOD COUNT (AUTO) 10.4 K/uL (4.8-10.8)
[2020-07-28] MEDS: HYDRALAZINE HCL 25 MG TABLET PO SCH ×5 (05:20→23:47)
--- NOTE | 2020-07-28 05:21 | NUR ---
Speech therapy recommended npo. Received information from previous nurse. Patient has not taken any meds npo to prevent aspiration precautions. will continue to monitor as needed. Currently patient has cardene infusing at 5mg/hr and percedex at 0.6 mcg/kg/hr.
[2020-07-28 05:40] LABS: ALBUMIN 2.9 g/dL (3.5-5.0); BILIRUBIN,TOTAL 0.9 mg/dL (0.2-1.0); MAGNESIUM 2.6 mg/dL (1.80-2.40); POTASSIUM 5.1 mmol/L (3.5-5.1); TOTAL PROTEIN, SERUM 6.1 g/dL (6.0-8.3)
[2020-07-28 05:53] LABS: CREATININE 8.7 mg/dL (0.5-1.5)
[2020-07-28] MEDS: INSULIN HUMULIN R 100 UNIT/ML 3ML SQ SCH ×5 (07:00→20:51)
[2020-07-28] MEDS: DEXAMETHASONE SOD PHOSPHATE 4 MG/ML 1ML VIAL IVP SCH (08:52)
[2020-07-28] MEDS: FAMOTIDINE/PF 20 MG/2 ML VIAL IV SCH (08:52)
[2020-07-28] MEDS: POLYETHYLENE GLYCOL 3350 17 GM POWD.PACK PO SCH (09:00)
[2020-07-28] MEDS: ASPIRIN 81MG TAB.CHEW PO SCH (10:00)
[2020-07-28] MEDS: METOPROLOL TARTRATE 25 MG TAB NG SCH ×2 (10:00→20:47)
[2020-07-28] MEDS: CALCIUM ACETATE 667 MG CAPSULE PO SCH ×3 (10:00→16:07)
--- NOTE | 2020-07-28 10:00 | NUR ---
BEDSIDE NURSING DYSPHAGIA SCREEN. PT IS COHERENT AND ABLE TO FOLLOW COMMANDS APPROPRIATELY. BEDSIDE SWALLOW TEST WAS DONE AND PT PASSED. PRECEDEX DRIP HAS BEEN TURNED OFF.
[2020-07-28] MEDS: CHLORHEXIDINE GLUCONATE 473 ML MOUTHWASH MM SCH ×2 (10:05→21:13)
[2020-07-28] MEDS: BALSAM PERU/CASTOR OIL 60 GM TUBE TP SCH ×3 (10:05→21:13)
[2020-07-28] MEDS: HEPARIN SODIUM 5000UNIT/ML 1ML VIAL SQ SCH ×2 (12:12→20:52)
--- NOTE | 2020-07-28 14:30 | NUR ---
DYSPHAGIA RE-EVALUATION COMPLETED. -S/S OF ASPIRATION. RECOMMEND REGULAR TEXTURE, THIN LIQUIDS; PILLS WHOLE WITH LIQUIDS. Addendum: 07/29/20 at 0750 by SEBASTIÁN OROZCO, [facility] Amended: Links added.
[2020-07-28] MEDS: EPOETIN ALFA-EPBX (ESRD) 10,000 UNIT/ML VIAL SQ SCH (20:48)
[2020-07-28] MEDS: CLONIDINE 0.1 MG/ 24 HR PATCH TD SCH (21:14)
--- NOTE | 2020-07-28 23:15 | NUR ---
I called after patient requesting for his home medications Requip 5 mg and Xanax 0.25 mg. Informed him, patient requesting medication. Did give a brief summary of patient had been in ICU this morning, extubated and is now in the covid unit. Orders received to go ahead and start the Xanax and Requip. Patient made aware of new orders, verbalized understanding.
[2020-07-28] MEDS ORDERED: ROPI5TAB4 PO (23:28)
[2020-07-28] MEDS ORDERED: CARV25TA PO (23:28)
[2020-07-28] MEDS ORDERED: BENA20TA10 PO (23:28)
[2020-07-28] MEDS ORDERED: ALPR0.255 PO (23:28)
[2020-07-28] MEDS ORDERED: FERR210T PO (23:28)
[2020-07-28] MEDS ORDERED: DOXY100C2 PO (23:28)
[2020-07-28] MEDS ORDERED: LOVA40TA2 PO (23:28)
[2020-07-28] MEDS ORDERED: HYDR100T27 PO (23:28)
[2020-07-28] MEDS ORDERED: CINA30 PO (23:28)
[2020-07-28] MEDS ORDERED: PANT40TA55 PO (23:28)
[2020-07-28] MEDS ORDERED: CLON0.2T PO (23:28)
[2020-07-28] MEDS ORDERED: ROPINIROLE HCL 1 MG TABLET ONE (23:38)
[2020-07-28] MEDS ORDERED: ALPRAZOLAM 0.25 MG TABLET ONE (23:38)
[2020-07-29] VITALS (8 sets, daily range): BP systolic 140–198; BP diastolic 50–91
[2020-07-29] MEDS: ALBUTEROL INHALER 90MCG/INH IH PRN (04:13)
--- NOTE | 2020-07-29 04:29 | NUR ---
0400: Patient complaining of coughing episode, non productive. Albuterol inhaler used at this time, HOB elevated. 02 sat at 92-93 with 02 per n/c at 4 liters. Patient continued with nonproductive cough, patient encouraged to keep HOB elevated, continued to HOB down. [id number] page Sam Foster [employer] via answering service. Respiratory therapist also called Khanh answered, informed him of patient's 02 sat dropping to 90-89. He stated they would be coming to check on patient. Informed him, patient has a bipap at bedside. 0410: Patient laying on his lt side, 02 at 89-90%, patient still having difficulty with nonproductive cough. 0415: Sam Foster [employer] returned call back, informed him of above, orders to put patient back on the bipap and monitor him. Khanh AMATO called again, stated to call Lakeisha AMATO in charge of the floor. Lakeisha AMATO called stated she would be right over. 0416: Patient's 02 sat at 90-92% with 02 per n/c 4 liters. Lakeisha RT put patient back on the bipap with setting of 14, 20 with 40%. 0429: Checked on patient states feels better 02 sat at 97%.
[2020-07-29] MEDS: HYDRALAZINE HCL 25 MG TABLET PO SCH ×4 (05:28→23:52)
[2020-07-29] MEDS: INSULIN HUMULIN R 100 UNIT/ML 3ML SQ SCH ×4 (06:31→20:18)
--- NOTE | 2020-07-29 06:32 | NUR ---
Patient has been resting with eyes closed, no distress noted, bipap in use, HOB elevated. O2 sats in the 95-96%.
--- NOTE | 2020-07-29 07:09 | NUR ---
Patient called, requested bipap to be removed, no distress noted. 02 at 4 liters per n/c placed in use. 02 sat at 94-95. Respiratory therapist called and made aware.
--- NOTE | 2020-07-29 07:53 | NUR ---
FOLLOW UP COMPLETED. JOB COACH COORDINATED WITH NURSE JAMES. Pt TO BE UPGRADED TO REGULAR TEXTURE, THIN LIQUID DIET WITH PILLS WHOLE WITH LIQUIDS. SHE VERBALIZED AGREEMENT. JOB COACH SPECIFIED EVALUATION AND RECOMMENDATIONS IN EMR NOT IN PAPER CHART. JOB COACH WILL CONTINUE TO FOLLOW Pt AT THIS TIME. Addendum: 07/29/20 at 0755 by SEBASTIÁN OROZCO, [facility] Amended: Links added.
[2020-07-29] MEDS: HEPARIN SODIUM 5000UNIT/ML 1ML VIAL SQ SCH ×2 (09:00→20:17)
[2020-07-29] MEDS: FAMOTIDINE 20MG TAB 20 MG TAB PO SCH (09:18)
[2020-07-29] MEDS: ASPIRIN 81MG TAB.CHEW PO SCH (09:18)
[2020-07-29] MEDS: POLYETHYLENE GLYCOL 3350 17 GM POWD.PACK PO SCH (09:18)
[2020-07-29] MEDS: CALCIUM ACETATE 667 MG CAPSULE PO SCH ×3 (09:18→17:27)
[2020-07-29] MEDS: METOPROLOL TARTRATE 25 MG TAB NG SCH ×2 (09:18→20:16)
[2020-07-29] MEDS: DEXAMETHASONE SOD PHOSPHATE 4 MG/ML 1ML VIAL IVP SCH (09:19)
[2020-07-29] MEDS: BALSAM PERU/CASTOR OIL 60 GM TUBE TP SCH ×3 (09:19→20:15)
[2020-07-29] MEDS: CHLORHEXIDINE GLUCONATE 473 ML MOUTHWASH MM SCH ×2 (09:19→20:14)
[2020-07-29] MEDS ORDERED: CEFEPIME HCL 1 GM VIAL ONE (13:15)
[2020-07-29] MEDS: CEFEPIME HCL 1 GM VIAL IVP SCH (13:20)
[2020-07-29] MEDS: ALPRAZOLAM 0.25 MG TABLET PO PRN (20:28)
[2020-07-29] MEDS: ROPINIROLE HCL 5 MG TABLET PO SCH (20:35)
[2020-07-30] VITALS (7 sets, daily range): BP systolic 134–200; BP diastolic 58–87
[2020-07-30 03:32] LABS: ABG BASE EXCESS 1.2 mmol/L (-2.0-3.0); ABG OXYGEN SATURATION 96.7 % (95.0-99.0); ABG PCO2 42 mmHg (35-48)
[2020-07-30 05:17] LABS: BASOPHILS % (AUTO) 0.1 % (0.0-5.0); EOSINOPHILS % (AUTO) 0.5 % (0.0-8.0); MEAN CORPUSCULAR HEMOGLOBIN 30.6 pg (27.0-33.0); MEAN CORPUSCULAR HGB CONC 33.3 g/dL (32.0-36.0); MEAN CORPUSCULAR VOLUME 91.9 fL (79-99); MONOCYTES % (AUTO) 7.8 % (3.0-13.0); NEUTROPHILS % (AUTO) 80.1 % (40.0-77.0); NUCLEATED RED BLOOD CELLS 0.1 % (0.0-0.19); PLATELET COUNT (AUTO) 222 K/uL (130-400); RED BLOOD CELL COUNT(AUTO) 2.22 MIL/uL (4.50-6.20); RED CELL DISTRIBUTION WIDTH 15.7 % (11.0-15.5); WHITE BLOOD COUNT (AUTO) 15.1 K/uL (4.8-10.8)
[2020-07-30 05:25] LABS: HEMATOCRIT 20.4 % (42-54)
[2020-07-30] MEDS: HYDRALAZINE HCL 25 MG TABLET PO SCH ×3 (06:23→17:50)
[2020-07-30 07:00] LABS: ALBUMIN 2.6 g/dL (3.5-5.0); BILIRUBIN,TOTAL 0.8 mg/dL (0.2-1.0); CRP QUANTITATIVE 19.9 mg/L (0.00-9.0); MAGNESIUM 2.4 mg/dL (1.80-2.40); POTASSIUM 4.4 mmol/L (3.5-5.1); TOTAL PROTEIN, SERUM 5.7 g/dL (6.0-8.3)
[2020-07-30] MEDS: INSULIN HUMULIN R 100 UNIT/ML 3ML SQ SCH ×4 (07:30→20:24)
[2020-07-30] MEDS: CALCIUM ACETATE 667 MG CAPSULE PO SCH ×3 (08:00→16:41)
[2020-07-30] MEDS: BALSAM PERU/CASTOR OIL 60 GM TUBE TP SCH ×3 (09:00→20:24)
[2020-07-30] MEDS: CHLORHEXIDINE GLUCONATE 473 ML MOUTHWASH MM SCH ×2 (09:00→20:23)
[2020-07-30] MEDS ORDERED: SODIUM CHLORIDE 0.9% 250 ML IV ONE (09:04)
[2020-07-30] MEDS: DEXAMETHASONE SOD PHOSPHATE 4 MG/ML 1ML VIAL IVP SCH (12:36)
[2020-07-30] MEDS: HEPARIN SODIUM 5000UNIT/ML 1ML VIAL SQ SCH ×2 (12:36→20:23)
[2020-07-30] MEDS: CEFEPIME HCL 1 GM VIAL IVP SCH (12:36)
[2020-07-30] MEDS: ASPIRIN 81MG TAB.CHEW PO SCH (12:37)
[2020-07-30] MEDS: FAMOTIDINE 20MG TAB 20 MG TAB PO SCH (12:37)
[2020-07-30] MEDS: POLYETHYLENE GLYCOL 3350 17 GM POWD.PACK PO SCH (12:38)
[2020-07-30] MEDS: METOPROLOL TARTRATE 25 MG TAB NG SCH ×2 (12:38→20:23)
[2020-07-30 14:08] LABS: HEMATOCRIT 26.2 % (42-54)
[2020-07-30] MEDS ORDERED: ACETAMINOPHEN 325 MG TAB ONE (16:39)
--- NOTE | 2020-07-30 17:47 | NUR ---
MOT SIGNED, CHART COPIED, MED REC/VS REPORT AND LAST 3 HD TX/ORDERS SENT TO [facility] AT [facility]. EMS FORMS FAXED. CORBY AWARE. Addendum: 07/30/20 at 1748 by SY LAZCANO RN CM Amended: Links added.
--- NOTE | 2020-07-30 18:28 | NUR ---
REPORT GIVEN TO GUILHERME TAVAREZ FROM [facility]. PATIENT AWAKE ALERT ORIENTED X 3, SATURATING 96% ON 4L, NO SIGNS AND SYMPTOMS OF DISTRESS. MADE AWARE PATIENT IS COVID POSITIVE. PATIENTS MADE AWARE OF TRANSFER
[2020-07-30] MEDS: ALPRAZOLAM 0.25 MG TABLET PO PRN (19:13)
[2020-07-30] MEDS: ROPINIROLE HCL 5 MG TABLET PO SCH (20:23)
[2020-07-30] MEDS: EPOETIN ALFA-EPBX (ESRD) 10,000 UNIT/ML VIAL SQ SCH (20:24)
== END 2020-07-30 22:10 | DRG 870 ==
LOC: EDH 05:50 → EDHIP 07:00 → 2BH 07-18 10:01 → 2AH 07-28 14:50
PROVIDERS: ADMIT Internal Medicine Infectious Disease; ATTEND Internal Medicine Infectious Disease
PROC: 5A1955Z Respiratory Ventilation, Greater than 96 Consecutive Hours (ICD-10-PCS; principal; 2020-07-17)
PROC: 0BH17EZ Insertion of Endotracheal Airway into Trachea, Via Natural or Artificial Opening (ICD-10-PCS; 2020-07-17)
PROC: 5A1D70Z Performance of Urinary Filtration, Intermittent, Less than 6 Hours Per Day (ICD-10-PCS; 2020-07-17)
PROC: 02HV33Z Insertion of Infusion Device into Superior Vena Cava, Percutaneous Approach (ICD-10-PCS; 2020-07-17)
PROC: B548ZZA Ultrasonography of Superior Vena Cava, Guidance (ICD-10-PCS; 2020-07-17)
PROC: 5A1D70Z Performance of Urinary Filtration, Intermittent, Less than 6 Hours Per Day (ICD-10-PCS; 2020-07-19)
PROC: 30233N1 Transfusion of Nonautologous Red Blood Cells into Peripheral Vein, Percutaneous Approach (ICD-10-PCS; 2020-07-19)
PROC: 5A1D70Z Performance of Urinary Filtration, Intermittent, Less than 6 Hours Per Day (ICD-10-PCS; 2020-07-21)
PROC: 5A1D70Z Performance of Urinary Filtration, Intermittent, Less than 6 Hours Per Day (ICD-10-PCS; 2020-07-23)
PROC: 5A1D70Z Performance of Urinary Filtration, Intermittent, Less than 6 Hours Per Day (ICD-10-PCS; 2020-07-26)
PROC: 5A09357 Assistance with Respiratory Ventilation, Less than 24 Consecutive Hours, Continuous Positive Airway Pressure (ICD-10-PCS; 2020-07-26)
PROC: 5A1D70Z Performance of Urinary Filtration, Intermittent, Less than 6 Hours Per Day (ICD-10-PCS; 2020-07-27)
PROC: 5A09357 Assistance with Respiratory Ventilation, Less than 24 Consecutive Hours, Continuous Positive Airway Pressure (ICD-10-PCS; 2020-07-27)
PROC: 5A1D70Z Performance of Urinary Filtration, Intermittent, Less than 6 Hours Per Day (ICD-10-PCS; 2020-07-28)
PROC: 5A09357 Assistance with Respiratory Ventilation, Less than 24 Consecutive Hours, Continuous Positive Airway Pressure (ICD-10-PCS; 2020-07-28)
PROC: 5A09357 Assistance with Respiratory Ventilation, Less than 24 Consecutive Hours, Continuous Positive Airway Pressure (ICD-10-PCS; 2020-07-29)
PROC: 5A1D70Z Performance of Urinary Filtration, Intermittent, Less than 6 Hours Per Day (ICD-10-PCS; 2020-07-30)
PROC: 5A09357 Assistance with Respiratory Ventilation, Less than 24 Consecutive Hours, Continuous Positive Airway Pressure (ICD-10-PCS; 2020-07-30)
DX: A41.9 Sepsis, unspecified organism (principal); U07.1 COVID-19; J12.89 Other viral pneumonia; J96.02 Acute respiratory failure with hypercapnia; J96.01 Acute respiratory failure with hypoxia; N18.6 End stage renal disease; R65.21 Severe sepsis with septic shock; N25.81 Secondary hyperparathyroidism of renal origin; I12.0 Hypertensive chronic kidney disease with stage 5 chronic kidney disease or end stage renal disease; C18.9 Malignant neoplasm of colon, unspecified; D50.9 Iron deficiency anemia, unspecified; E87.5 Hyperkalemia; L97.519 Non-pressure chronic ulcer of other part of right foot with unspecified severity; E83.39 Other disorders of phosphorus metabolism; D69.6 Thrombocytopenia, unspecified; E11.22 Type 2 diabetes mellitus with diabetic chronic kidney disease; E11.621 Type 2 diabetes mellitus with foot ulcer; E66.01 Morbid (severe) obesity due to excess calories; E78.5 Hyperlipidemia, unspecified; K25.9 Gastric ulcer, unspecified as acute or chronic, without hemorrhage or perforation; R53.81 Other malaise; Z99.2 Dependence on renal dialysis; Z68.35 Body mass index [BMI] 35.0-35.9, adult; Z82.49 Family history of ischemic heart disease and other diseases of the circulatory system; Z83.3 Family history of diabetes mellitus
CPT/HCPCS: 31500; 36415; 36430; 36600; 71045; 80048; 80053; 80074; 81001; 82435; 82550; 82728; 82803; 82947; 82948; 83605; 83735; 83880; 84100; 84132; 84145; 84295; 84484; 85014; 85018; 85025; 85027; 85378; 85610; 85730; 86140; 86850; 86900; 86901; 86923; 87040; 87071; 87205; 87426; 90935; 92610; 93005; 93970; 94002; 94003; 94640; 94660; 99291; C1751; C1894; G0378; J0692; J0885; J1100; J1644; J1650; J1815; J1940; J2405; J2704; J3010; J3370; J3490; J7050; J7070; P9016

== ENCOUNTER 2020-12-01 15:37 | Emergency (ER) | payer MEDICARE ==
[~2020-12-01 15:37] MED LIST changes: +ALPR0.255 PO; +BENA20TA10 PO; +CARV25TA PO; +CINA30 PO; +CLON0.2T PO; +DOXY100C2 PO; +FERR210T PO; +HYDR100T27 PO; -IOHEXOL 350 MG/ML 100ML INFUS..BTL IV ONE; +LOVA40TA2 PO; +PANT40TA55 PO; +ROPI5TAB4 PO
[2020-12-01] MEDS ORDERED: KETOROLAC TROMETHAMINE 15MG/ML ONE (16:46)
[2020-12-01 17:17] LABS: BASOPHILS % (AUTO) 0.4 % (0.0-5.0); LYMPHOCYTES % (AUTO) 6.2 % (21.0-51.0); MEAN CORPUSCULAR HGB CONC 31.7 g/dL (32.0-36.0); MEAN CORPUSCULAR VOLUME 91.6 fL (79-99); PLATELET COUNT (AUTO) 254 K/uL (130-400); RED BLOOD CELL COUNT(AUTO) 3.93 MIL/uL (4.50-6.20); RED CELL DISTRIBUTION WIDTH 14.1 % (11.0-15.5); WHITE BLOOD COUNT (AUTO) 11.4 K/uL (4.8-10.8)
[2020-12-01 17:44] LABS: ALBUMIN 3.6 g/dL (3.5-5.0); BILIRUBIN,TOTAL 0.6 mg/dL (0.2-1.0); CREATININE 6.9 mg/dL (0.5-1.5); POTASSIUM 4.3 mmol/L (3.5-5.1); TOTAL PROTEIN, SERUM 7.6 g/dL (6.0-8.3)
[2020-12-01 18:19] LABS: APPEARANCE,URINE Clear (CLEAR); BILIRUBIN,URINE Negative (NEGATIVE); COLOR,URINE Yellow (YELLOW); GLUCOSE, URINE (UA) 250 mg/dL (NEGATIVE); KETONES,URINE Negative (NEGATIVE); LEUKOCYTE ESTERASE ,URINE Trace (NEGATIVE); NITRATE,URINE Negative (NEGATIVE); OCCULT BLOOD,URINE Negative (NEGATIVE); PROTEIN,URINE 300 mg/dL (NEGATIVE); UROBILINOGEN,URINE 0.2 mg/dL (0.2-1.0)
[2020-12-01 18:28] LABS: BACTERIA,URINE Rare /HPF (None Seen); RBC,URINE 0-1 /HPF (0-1)
[2020-12-01 18:29] LABS: COARSE GRANULAR CASTS,URINE 0-2 /LPF (None Seen); SQUAMOUS EPITHELIAL CELL,UR Rare /HPF (0-2); TRANSITIONAL EPI CELLS,URINE Rare /HPF (None Seen)
== END 2020-12-01 19:13 | disposition home or self-care (01) ==
LOC: EDH 15:37
DX: R10.9 Unspecified abdominal pain (principal); R19.7 Diarrhea, unspecified; I10 Essential (primary) hypertension; E11.9 Type 2 diabetes mellitus without complications; I13.2 Hypertensive heart and chronic kidney disease with heart failure and with stage 5 chronic kidney disease, or end stage renal disease; E11.22 Type 2 diabetes mellitus with diabetic chronic kidney disease; N18.6 End stage renal disease; Z99.2 Dependence on renal dialysis; Z98.890 Other specified postprocedural states
CPT/HCPCS: 36415; 74176; 80053; 81001; 85025; 96374; 99284; J1885

== ENCOUNTER 2023-10-01 12:10 | Emergency (ER) | payer MEDICARE ==
[~2023-10-01] VITALS: Ht 177.8 cm; Wt 113.4 kg
[~2023-10-01 12:10] MED LIST changes: -ALPR0.255 PO; +AMLO-258 PO; +AURYXIA PO; -BENA20TA10 PO; -CARV25TA PO; -CINA30 PO; +CINA90TA4 PO; -DOXY100C2 PO; -LOVA40TA2 PO; +METO100T14 PO; -PANT40TA55 PO; -ROPI5TAB4 PO
[2023-10-01 14:12] LABS: BASOPHILS # (AUTO) 0.04 K/uL (0.00-0.20); BASOPHILS % (AUTO) 0.9 % (0.0-5.0); EOSINOPHILS # (AUTO) 0.08 K/uL (0.00-0.70); EOSINOPHILS % (AUTO) 1.9 % (0.0-8.0); HEMATOCRIT 31.2 % (42-54); IMMATURE GRANULOCYTE ABSOLUTE 0.02 K/uL (0-1); LYMPHOCYTES # (AUTO) 0.3 K/uL (1.0-4.8); LYMPHOCYTES % (AUTO) 7.7 % (21.0-51.0); MEAN CORPUSCULAR HEMOGLOBIN 31.5 pg (27.0-33.0); MEAN CORPUSCULAR VOLUME 92.6 fL (79-99); MONOCYTES # (AUTO) 0.4 K/uL (0.1-1.0); MONOCYTES % (AUTO) 9.6 % (3.0-13.0); NEUTROPHILS # (AUTO) 3.4 K/uL (1.8-7.7); NEUTROPHILS % (AUTO) 79.4 % (40.0-77.0); PLATELET COUNT (AUTO) 116 K/uL (130-400); RED BLOOD CELL COUNT(AUTO) 3.37 MIL/uL (4.50-6.20); RED CELL DISTRIBUTION WIDTH 15.2 % (11.0-15.5); WHITE BLOOD COUNT (AUTO) 4.3 K/uL (4.8-10.8)
[2023-10-01 14:21] LABS: CREATININE 6.3 mg/dL (0.5-1.5); POTASSIUM 4.5 mmol/L (3.5-5.1)
[2023-10-01 14:25] LABS: ALBUMIN 3.7 g/dL (3.5-5.0); BILIRUBIN,TOTAL 1.4 mg/dL (0.2-1.0); TOTAL PROTEIN, SERUM 7.1 g/dL (6.0-8.3)
[2023-10-01 14:26] LABS: INR 0.94 (0.85-1.15)
[2023-10-01 14:27] LABS: PARTIAL THROMBOPLASTIN TIME 30.5 SEC (26.3-35.5)
[2023-10-01 15:03] LABS: BAND NEUTROPHILS % (MANUAL) 1 % (0-2); BASOPHILS % (MANUAL) 3 % (0-2); EOSINOPHILS % (MANUAL) 1 % (1-6); LYMPHOCYTES % (MANUAL) 3 % (22-44); MAN.DIFF COMMENT-IMPRESSION MANUAL DIFFERENTIAL; MONOCYTES % (MANUAL) 7 % (2-9); PLATELET MORPHOLOGY COMMENT ADEQUATE; REACTIVE LYMPHOCYTES 1 % (0-0); SEGMENTED NEUTROPHILS % 84 % (40-70); TOTAL CELLS COUNTED 100
[2023-10-01 16:48] VITALS: BP 165/86; PULSE 68; RESP 18; O2SAT 95
== END 2023-10-01 16:50 | disposition home or self-care (01) ==
LOC: EDH 12:10
DX: S70.11XA Contusion of right thigh, initial encounter (principal); I12.0 Hypertensive chronic kidney disease with stage 5 chronic kidney disease or end stage renal disease; E11.22 Type 2 diabetes mellitus with diabetic chronic kidney disease; N18.6 End stage renal disease; Z99.2 Dependence on renal dialysis; X58.XXXA Exposure to other specified factors, initial encounter; Y93.89 Activity, other specified; Y92.89 Other specified places as the place of occurrence of the external cause; Y99.8 Other external cause status
CPT/HCPCS: 36415; 80053; 85025; 85610; 85730; 93971

== ENCOUNTER 2023-11-11 11:23 | Emergency (ER) | payer MEDICARE ==
[~2023-11-11] VITALS: Ht 177.8 cm; Wt 111.1 kg
[2023-11-11 11:45] LABS: BASOPHILS # (AUTO) 0.04 K/uL (0.00-0.20); BASOPHILS % (AUTO) 0.3 % (0.0-5.0); EOSINOPHILS # (AUTO) 0.04 K/uL (0.00-0.70); EOSINOPHILS % (AUTO) 0.3 % (0.0-8.0); HEMATOCRIT 30.4 % (42-54); IMMATURE GRANULOCYTE ABSOLUTE 0.07 K/uL (0-1); LYMPHOCYTES # (AUTO) 0.3 K/uL (1.0-4.8); LYMPHOCYTES % (AUTO) 2.1 % (21.0-51.0); MEAN CORPUSCULAR HEMOGLOBIN 31.1 pg (27.0-33.0); MEAN CORPUSCULAR HGB CONC 33.6 g/dL (32.0-36.0); MEAN CORPUSCULAR VOLUME 92.7 fL (79-99); MONOCYTES # (AUTO) 0.8 K/uL (0.1-1.0); MONOCYTES % (AUTO) 5.3 % (3.0-13.0); NEUTROPHILS # (AUTO) 13.1 K/uL (1.8-7.7); NEUTROPHILS % (AUTO) 91.5 % (40.0-77.0); PLATELET COUNT (AUTO) 115 K/uL (130-400); RED BLOOD CELL COUNT(AUTO) 3.28 MIL/uL (4.50-6.20); RED CELL DISTRIBUTION WIDTH 14.8 % (11.0-15.5); WHITE BLOOD COUNT (AUTO) 14.3 K/uL (4.8-10.8)
[2023-11-11 12:02] LABS: ALBUMIN 3.7 g/dL (3.5-5.0); BILIRUBIN,TOTAL 1.1 mg/dL (0.2-1.0); POTASSIUM 5.3 mmol/L (3.5-5.1); TOTAL PROTEIN, SERUM 6.7 g/dL (6.0-8.3)
[2023-11-11 12:24] LABS: CREATININE 9.1 mg/dL (0.5-1.3)
[2023-11-11] MEDS: HYDROCODONE/ACETAMINOPHEN 5/325 MG TAB PO ONE (13:11)
[2023-11-11 14:37] VITALS: BP 164/73; PULSE 66; RESP 17; O2SAT 99
[2023-11-14] MEDS ORDERED: CLON1PAT14 TD (09:59)
[2023-11-14] MEDS ORDERED: ZOLP5TAB8 PO (09:59)
[2023-11-14] MEDS ORDERED: CLON0.3T PO (10:36)
== END 2023-11-11 16:13 | disposition home or self-care (01) ==
LOC: EDH 11:23
DX: M79.652 Pain in left thigh (principal); I12.0 Hypertensive chronic kidney disease with stage 5 chronic kidney disease or end stage renal disease; N18.6 End stage renal disease; E11.22 Type 2 diabetes mellitus with diabetic chronic kidney disease; E87.5 Hyperkalemia; F41.9 Anxiety disorder, unspecified; Z99.2 Dependence on renal dialysis; Z79.899 Other long term (current) drug therapy; Z98.890 Other specified postprocedural states
CPT/HCPCS: 36415; 71045; 80053; 84484; 85025; 93005; 93926; 93971